=== PATIENT | male | born 1965 | race Caucasian/White ===

== ENCOUNTER 2018-12-03 11:26 | Emergency (ER) | payer OTHER ==
[~2018-12-03] VITALS: Ht 182.9 cm; Wt 124.7 kg
[~2018-12-03 11:26] MED LIST: HYDROCHLOROTHIA25 M2 PO; LISINOPRIL10 MG PO; NORCO 5-325 TA1 EACH PO; OXCARBAZEPINE300 M1 PO; PAXIL10 MG PO; PRILOSEC20 MG
[2018-12-03] MEDS ORDERED: LISINOPRIL10 MG PO ×2 (11:37→15:59)
[2018-12-03 12:02] LABS: ABSOLUTE EOSINOPHILS 0.2 thou/uL (0.0-0.7); ABSOLUTE LYMPHOCYTES 2.4 thou/uL (0.8-5.3); ABSOLUTE MONOCYTES 1.3 thou/uL (0.0-1.2); ABSOLUTE NEUTROPHILS 7.8 thou/uL (1.6-8.1); BASOPHILS 0.4 %; HEMATOCRIT 45.2 % (42.0-52.0); HEMOGLOBIN 14.9 gm/dL (14.0-18.0); LYMPHOCYTES 20.5 %; MCH 27.1 pg (26.0-34.0); MCHC 33.1 g/dL (28.0-37.0); MCV 81.9 fL (80.0-100.0); MONOCYTES 11.1 %; MPV 8.2 fl. (7.2-11.1); NUCLEATED RBCS 0 /100WBC; PLATELET COUNT* 290 thou/uL (150-400); RBC 5.52 mil/uL (4.50-6.00); RDW-CV 13.9 % (10.5-14.5); WBC 11.8 thou/uL (4.0-11.0)
[2018-12-03 12:10] LABS: CALCIUM 9.3 mg/dL (8.5-10.1); CREATININE 0.7 mg/dL (0.6-1.3); POTASSIUM 4.2 mmol/L (3.5-5.1)
[2018-12-03 12:14] LABS: ALBUMIN 3.8 g/dL (3.4-5.0); TOTAL BILIRUBIN 0.5 mg/dL (<0.1-1.0)
[2018-12-03] MEDS ORDERED: NORCO 5-325 TA1 EAC1 PO (15:18)
[2018-12-03] MEDS ORDERED: BUTALB-APAP-CA1 EACH PO (15:18)
[2018-12-03] MEDS ORDERED: HYDROCHLOROTHIA25 M2 PO (15:59)
[2018-12-03 16:21] VITALS: BP 113/76
== END 2018-12-03 16:36 | disposition home or self-care (01) ==
LOC: M.ERS 11:26
PROVIDERS: Personal Emergency Response Attendant
DX: R51 Headache (principal); I10 Essential (primary) hypertension; F32.9 Major depressive disorder, single episode, unspecified; E11.9 Type 2 diabetes mellitus without complications